=== PATIENT | female | born 1945 | race Caucasian/White ===

== ENCOUNTER → 2019-08-12 | Outpatient (CLI) | payer MEDICARE ==
--- NOTE | 2019-08-12 11:54 | Diagnostic Imaging Report ---
EXAM: Bone density study HISTORY: ^OSTEOARTHRITIS LEFT KNEE FINDINGS: LEFT FEMORAL NECK: Bone mineral density measurement: 1.020 gm/cm2 Standard deviation from young adult population (T score): 1.5 Standard deviation for age adjusted population (Z score): 3.7 LUMBAR SPINE: Bone mineral density measurement: 1.15 gm/cm2 Standard deviation from young adult population (T score): 1.0 Standard deviation for age adjusted population (Z score): 3.4 IMPRESSION: Bone mineralization of the left femoral neck: Normal. Bone mineralization of the lumbar spine: Normal. DIAGNOSTIC CRITERIA: Normal: BMD measurement less than one standard deviation from young adult population Osteopenia: BMD measurement between one and 2.5 standard deviations corresponds to a 1 - 2x increased risk of an osteoporotic fracture of the lumbar spine as compared to the young adult population. Osteoporosis: BMD measurement greater than 2.5 standard deviations corresponds to a 2x increased risk of an osteoporotic fracture of the lumbar spine as compared to the young adult population. Severe osteoporosis: Osteoporosis and one or more fragility fractures Signed by: Deniz Hill MD on 08/12/2019 11:50 AM
== END ==
LOC: DX 10:19
PROVIDERS: ATTEND Specialist
DX: M17.12 Unilateral primary osteoarthritis, left knee (principal)
CPT/HCPCS: 77080